=== PATIENT | female | born 1990 | race Two or more races ===

== ENCOUNTER → 2018-11-12 | Emergency (ER) | payer MEDICAID, OTHER | END | disposition left against medical advice (07) | LOC: ER 21:27 | DX: N93.9 Abnormal uterine and vaginal bleeding, unspecified (principal); Z53.21 Procedure and treatment not carried out due to patient leaving prior to being seen by health care provider ==

== ENCOUNTER 2022-01-04 21:20 | Emergency (ER) | payer MEDICAID ==
[~2022-01-04] VITALS: Ht 175.3 cm; Wt 88.5 kg
[2022-01-04 21:21] VITALS: BP 119/62
[2022-01-04] MEDS ORDERED: IBU600T PO (23:59)
[2022-01-05] MEDS ORDERED: IBUPROFEN 600 MG TAB PO ONE
[2022-01-05] MEDS ORDERED: IBU600T PO ×5 (00:01→00:12)
== END 2022-01-05 00:14 | disposition home or self-care (01) ==
LOC: ER 21:20
DX: S80.11XA Contusion of right lower leg, initial encounter (principal); Z79.1 Long term (current) use of non-steroidal anti-inflammatories (NSAID); W18.39XA Other fall on same level, initial encounter; Y93.89 Activity, other specified; Y92.89 Other specified places as the place of occurrence of the external cause; Y99.0 Civilian activity done for income or pay
CPT/HCPCS: 73562

== ENCOUNTER 2022-11-18 00:25 | Emergency (ER) | payer MEDICAID ==
[~2022-11-18] VITALS: Ht 175.3 cm; Wt 94.2 kg
[~2022-11-18 00:25] MED LIST: IBU600T PO
[2022-11-18] MEDS ORDERED: CYCL-837 PO (02:50)
[2022-11-18] MEDS ORDERED: DICL-163 PO (02:50)
[2022-11-18] MEDS ORDERED: HYDROcodone-ACET 5/325MG TAB PO ONE (03:00)
[2022-11-18] MEDS ORDERED: KETOROLAC TROMETH 30 MG/ML 1ML VIAL IM ONE (03:00)
[2022-11-18 04:00] VITALS: BP 105/67
== END 2022-11-18 04:04 | disposition home or self-care (01) ==
LOC: ER 00:25
DX: M79.601 Pain in right arm (principal); M25.511 Pain in right shoulder; M54.2 Cervicalgia; M54.6 Pain in thoracic spine; V43.62XA Car passenger injured in collision with other type car in traffic accident, initial encounter; Y93.89 Activity, other specified; Y92.89 Other specified places as the place of occurrence of the external cause; Y99.8 Other external cause status
CPT/HCPCS: 70450; 71250; 72125; 73030; 73080; 73130; 74176; 93005

== ENCOUNTER 2023-01-07 21:53 | Emergency (ER) | payer MEDICAID ==
[~2023-01-07] VITALS: Ht 175.3 cm; Wt 91.9 kg
[~2023-01-07 21:53] MED LIST changes: +CYCL-837 PO; +DICL-163 PO
[2023-01-07 23:30] VITALS: BP 118/67
[2023-01-08 00:52] LABS: Urine Bacteria NONE SEEN /hpf (None Seen); Urine Blood Negative /uL (Negative); Urine Mucus FEW (None Seen); Urine Specific Gravity 1.034 (1.001-1.035); Urine WBC 23 /hpf (0 - 5)
[2023-01-08] MEDS ORDERED: PRED20TA2 PO (01:03)
[2023-01-08] MEDS ORDERED: NITR-87 PO (01:03)
== END 2023-01-08 01:13 | disposition home or self-care (01) ==
LOC: ER 21:53
DX: J06.9 Acute upper respiratory infection, unspecified (principal); N39.0 Urinary tract infection, site not specified; J45.909 Unspecified asthma, uncomplicated
CPT/HCPCS: 81001

== ENCOUNTER 2024-07-02 19:58 | Emergency (ER) | payer MEDICAID ==
[~2024-07-02] VITALS: Ht 162.6 cm; Wt 83.2 kg
[~2024-07-02 19:58] MED LIST changes: -DICL-163 PO; +DICL50TA5 PO; +NITR-87 PO; +PRED20TA2 PO
[2024-07-02 20:41] VITALS: BP 111/69; PULSE 80; RESP 20; TEMP 98.2; O2SAT 97
[2024-07-02] MEDS ORDERED: CETITAB29 PO (22:23)
[2024-07-02] MEDS ORDERED: PRED20TA2 PO (22:23)
[2024-07-02] MEDS ORDERED: FLUT250M2 INH (22:30)
[2024-07-02] MEDS: diphenhdrAMINE HCL 50 MG/1 ML VL IM ONE (22:44)
[2024-07-02] MEDS: DexAMETHasone SOD PHOS 10MG/1ML VIAL INJ IM ONE (22:45)
== END 2024-07-02 23:02 | disposition home or self-care (01) ==
LOC: ER 19:58
DX: S40.862A Insect bite (nonvenomous) of left upper arm, initial encounter (principal); S40.861A Insect bite (nonvenomous) of right upper arm, initial encounter; J45.909 Unspecified asthma, uncomplicated; W57.XXXA Bitten or stung by nonvenomous insect and other nonvenomous arthropods, initial encounter; Y93.89 Activity, other specified; Y92.89 Other specified places as the place of occurrence of the external cause; Y99.8 Other external cause status
CPT/HCPCS: 96372; 99283; J1100; J1200

== ENCOUNTER 2024-09-15 15:01 | Emergency (ER) | payer MEDICAID ==
[~2024-09-15] VITALS: Ht 175.3 cm; Wt 88.2 kg
[~2024-09-15 15:01] MED LIST changes: +CETITAB29 PO; +FLUT250M2 INH
[2024-09-15 15:47] VITALS: BP 94/37; PULSE 93; TEMP 99.2
[2024-09-15] MEDS: IPRATROPIUM BROM 0.5 MG/2.5ML INH SOL NEB ONE (16:05)
[2024-09-15] MEDS: ALBUTEROL SULF 2.5 MG/0.5ML(0.5%) NEB SOLN NEB ONE (16:05)
[2024-09-15 16:09] VITALS: RESP 16; O2SAT 96
[2024-09-15] MEDS ORDERED: AZIT500T66 PO (16:44)
[2024-09-15] MEDS ORDERED: PRED20TA2 PO (16:44)
[2024-09-15] MEDS ORDERED: FLUT1AER6 IN (16:44)
== END 2024-09-15 16:55 | disposition home or self-care (01) ==
LOC: ER 15:01
DX: J03.90 Acute tonsillitis, unspecified (principal); J45.909 Unspecified asthma, uncomplicated
CPT/HCPCS: 71045; 94640

== ENCOUNTER 2025-02-13 09:46 | Emergency (ER) | payer MEDICAID ==
[~2025-02-13] VITALS: Ht 160 cm; Wt 93.6 kg
[~2025-02-13 09:46] MED LIST changes: +AZIT500T66 PO; +FLUT1AER6 IN
[2025-02-13 10:28] VITALS: BP 137/93; PULSE 89; RESP 20; TEMP 98.4; O2SAT 97
[2025-02-13] MEDS: LORazepam 0.5 MG TAB PO ONE (10:38)
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
[2025-02-13] MEDS ORDERED: HYDR-3682 PO (12:29)
[2025-02-13] MEDS ORDERED: FLUT1AER6 IN (12:29)
== END 2025-02-13 12:23 | disposition home or self-care (01) ==
LOC: ER 09:46
DX: F43.22 Adjustment disorder with anxiety (principal); J45.909 Unspecified asthma, uncomplicated

== ENCOUNTER 2025-10-17 10:27 | Emergency (ER) | payer MEDICAID ==
[~2025-10-17] VITALS: Ht 165.1 cm; Wt 91.7 kg
[~2025-10-17 10:27] MED LIST changes: +HYDR-3682 PO
--- NOTE | 2025-10-17 11:17 | ED.PDOC ---
SOB-HPI HPI Comments A 35 YEAR OLD FEMALE PRESENTS TO THE ED WITH COMPLAINT OF ASTHMA EXACERBATION, REQUEST FOR MEDICATION REFILL, AND REQUEST FOR TEST. PATIENT STATES SHE HAS A HISTORY OF ASTHMA AND HAS BEEN EXPERIENCING DIFFICULTY BREATHING, CHEST TIGHTNESS, AND A SORE THROAT FOR THE PAST 2 DAYS. PATIENT REPORTS SHE WOULD ALSO LIKE A MEDICATION REFILL FOR HER FOR PROZAC TO MANAGE HER ANXIETY. PATIENT IS ALSO REQUESTING A URINE TEST HERE IN THE ED SHE STATES THERE IS A POSSIBILITY THAT SHE MAY BE . PATIENT DENIES FEVER, CHILLS, SHORTNESS OF BREATH, CHEST PAIN, ABDOMINAL PAIN, NAUSEA, VOMITING, HEADACHE, OR OTHER COMPLAINTS. NO OTHER SYMPTOMS OR MODIFYING FACTORS AT THIS TIME. PATIENT IS ALERT, ORIENTED X 4, AND HAS STEADY GAIT. Chief Complaint: Shortness of Breath Time Seen by MD: 10:36 Primary Care Provider: DENZEL Merrill notes: Nurses Notes, Medications, Allergies Information Source: Patient Mode of Arrival: Ambulatory Severity: Moderate Timing: Days Duration: Since onset, Other Context: Spontaneous Onset PE Risk Factors: None History of: Asthma Prehospital treatment: None Modifying Factors: Nothing Associated Signs and Symptoms: Cough, Sore Throat If cough with SOB: Non-Productive Past Medical History PAST MEDICAL HISTORY: Anxiety, Asthma Surgical History: Denies all surgeries EDUCATIONAL AID History: No Pertinent EDUCATIONAL AID History Family History Family History: Reviewed,noncontributory to illness Social History Smoker: Non-Smoker Alcohol: Denies ETOH Use Drugs: Denies Drug Use Lives In: Home Constitutional: denies: chills, diaphoresis, fatigue, fever, malaise, sweats, weakness, others EENTM: denies: blurred vision, double vision, ear bleeding, ear discharge, ear drainage, ear pain, ear ringing, eye pain, eye redness, hearing loss, mouth pain, mouth swelling, nasal discharge, nose bleeding, nose congestion, nose pain, photophobia, tearing, throat pain, throat swelling, voice changes, others Respiratory: reports: wheezing, others (CHEST TIGHTNESS); denies: cough, hemoptysis, orthopnea, SOB at rest, shortness of breath, SOB with excertion, stridor Cardiovascular: denies: chest pain, dizzy spells, diaphoresis, Dyspnea on exertion, edema, irregular heart beat, left arm pain, lightheadedness, palpitations, PND, syncope, others Gastrointestinal: denies: abdomen distended, abdominal pain, blood streaked bowels, constipated, diarrhea, dysphagia, difficulty swallowing, hematemesis, melena, nausea, poor appetite, poor fluid intake, rectal bleeding, rectal pain, vomiting, others Genitourinary: denies: abnormal vagina bleeding, burning, dyspareunia, dysuria, flank pain, frequency, hematuria, incontinence, pain, , vagina discharge, urgency, others Neurological: denies: dizziness, fainting, headache, left sided numbness, left sided weakness, numbness, paresthesia, pre-existing deficit, right sided numbness, right sided weakness, seizure, speech problems, tingling, tremors, weakness, others Musculoskeletal: denies: back pain, gout, joint pain, joint swelling, muscle pain, muscle stiffness, neck pain, others Integumetry: denies: bruises, change in color, change in hair/nails, dryness, laceration, lesions, lumps, rash, wounds, others Allergic/Immunocompromised: denies: Difficulty Healing, Frequent Infections, Hives, Itching, others Hematologic/Lymphatic: denies: anemia, blood clots, easy bleeding, easy bruising, swollen glands, others Endocrine: denies: excessive hunger, excessive sweating, excessive thirst, excessive urination, flushing, intolerance to cold, intolerance to heat, unexplained weight gain, unexplained weight loss, others Psychiatric: reports: anxiety; denies: bipolar disorder, depression, hopeless, panic disorder, schizophrenia, sleepless, suicidal, others All Other Systems: Reviewed and Negative Physical Exam General Appearance: No Apparent Distress, Normal HEENT: Normal ENT Inspection, PERRL/EOMI, Pharynx Normal, TMs Normal Neck: Full Range of Motion, Non-Tender, Normal, Normal Inspection Respiratory: Chest Non-Tender, Expiration, No Accessory Muscle Use, No Respiratory Distress, Wheezing Cardiovascular: No Edema, No JVD, No Murmur, No Gallop, Normal Peripheral Pulses, Regular Rate/Rhythm Breast Exam: Deferred Gastrointestinal: No Organomegaly, Non Tender, No Pulsatile Mass, Normal Bowel Sounds, Soft Genitalia: Deferred Pelvic: Deferred Rectal: Deferred Extremities: No calf tenderness, Normal capillary refill, Normal inspection, Normal range of motion, Non-tender, No pedal edema Musculoskeletal : Apperance: Normal Neurologic: Alert, physician locums urgent care II-XII nml as Tested, No Motor Deficits, Normal Affect, Normal Mood, No Sensory Deficits Cerebellar Function: Normal Reflexes: Normal Skin: Dry, Normal Color, Warm Peripheral Pulses: 2+ carotid (R), 2+ carotid (L) Lymphatic: No Adenopathy Was a procedure done? Was a procedure done?: No Differential Dx Differential Diagnosis: Anxiety, Asthma, Sinusitis, Allergic Rhinitis, Otitis Media, URI X-Ray, Labs, Meds, VS Vital Signs Date Time Temp Pulse Resp B/P (MAP) Pulse Ox O2 Delivery O2 Flow Rate FiO2 10/17/25 11:49 98.0 83 15 99/74 (82) 100 98.0 10/17/25 11:49 83 15 100 Room Air 10/17/25 11:21 17 97 Room Air* 0 21 10/17/25 10:29 97.9 82 16 155/112 98 97.9 Lab Test 10/17/25 11:02 Range/Units Urine Test Negative Negative Current Medications Medications (Trade) Dose Ordered Sig/Ibrahima Route Start Time Stop Time Status Last Admin Albuterol (Ventolin Medneb) 2.5 mg ONCE ONCE NEB 10/17/25 11:15 10/17/25 11:16 DC 10/17/25 11:21 Ipratropium [place] (Atrovent Medneb) 0.5 mg ONCE ONCE NEB 10/17/25 11:15 10/17/25 11:16 DC 10/17/25 11:21 X-Ray, Labs, Meds, VS Comment EXTERNAL MEDICAL RECORDS REVIEWED: [NONE] INDEPENDENT HISTORIANS: [NONE] SOCIAL DETERMINANTS OF HEALTH: [NONE] LABS ORDERED: URINE REVIEWED AND INTERPRETED RESULTS: NEGATIVE IMAGING ORDERED: NONE TREATMENTS ORDERED: DUONEB 3 MG INHL PROCEDURES PERFORMED: NONE CRITICAL CARE TIME: NONE I HAVE DISCUSSED THE PATIENT WITH THE ATTENDING PHYSICIAN DR. MORGAN AND HE AGREES WITH THE PATIENT'S PLAN OF CARE AND DISPOSITION. BASED ON HISTORY OF PRESENT ILLNESS, AND PHYSICAL EXAM, PATIENT WILL BE DISCHARGED HOME. DISCUSSED PLAN FOR DISCHARGE HOME WITH RX [INHALER AND PROZAC 20 MG]. MEDICATION WARNINGS GIVEN. SHARED DECISION MAKING: DISCUSSED WITH PATIENT THAT THEIR WORKUP WAS NORMAL. PATIENT INSTRUCTED TO FOLLOW UP WITH PRIMARY CARE PROVIDER IN 1-2 DAYS FOR RE- EVALUATION OF SYMPTOMS. PATIENT VERBALIZES UNDERSTANDING TO RETURN TO ED FOR NEW OR WORSENING SYMPTOMS OR IF FOLLOW UP WITH PCP CANNOT BE OBTAINED. PATIENT FEELS COMFORTABLE GOING HOME AT THIS TIME. ALL QUESTIONS ADDRESSED AT TIME OF DISCHARGE. Time of 1ST Reevaluation: 12:21 Reevaluation 1ST: Improved Patient Education/Counseling: Diagnosis, Treatment, Need For Follow Up Family Education/Counseling: Diagnosis, Treatment, Need For Follow Up Medical Screening: No EMC Exist At This Time SEPSIS Sepsis Screen Date sepsis recognized/suspect: Oct 17, 2025 Time Sepsis recognized/suspect: 103 Recent Procedure: No On Antibiotic Therapy: No Respiratory Rate >20: No Heart Rate >90: No Temp<36 C (96.8 F) or >38.3 C: No SBP <90 or MAP <65 mmHG: No New Acute Mental Status Change: No Is the patient on CPAP, BIPAP,: No Vital Signs Date Time Temp Pulse Resp B/P (MAP) Pulse Ox O2 Delivery O2 Flow Rate FiO2 10/17/25 11:49 98.0 83 15 99/74 (82) 100 98.0 10/17/25 11:49 83 15 100 Room Air 10/17/25 11:21 17 97 Room Air* 0 21 10/17/25 10:29 97.9 82 16 155/112 98 97.9 Medications Medications Dose Ordered Sig/Ibrahima Route Start Time Stop Time Status Last Admin Dose Admin Albuterol 2.5 mg ONCE ONCE NEB 10/17/25 11:15 10/17/25 11:16 DC 10/17/25 11:21 Ipratropium [place] 0.5 mg ONCE ONCE NEB 10/17/25 11:15 10/17/25 11:16 DC 10/17/25 11:21 Departure 1 Departure Time of Disposition: 12:24 Impression: Primary Impression: Acute asthma exacerbation Qualified Codes: J45.21 - Mild intermittent asthma with (acute) exacerbation Additional Impressions: Encounter for medication refill History of anxiety Disposition: HOME / SELF CARE / HOMELESS Condition: Stable Additional Instructions: FOLLOW-UP WITH PCP IN 1 TO 2 DAYS. TAKE MEDICATIONS PRESCRIBED. RETURN TO ED FOR ANY NEW OR WORSENING SYMPTOMS. e-Prescriptions Fluoxetine HCl (Pmdd) (Fluoxetine HCl) 20 Mg Tab 20 MG PO DAILY, #20 TAB Prov: SSUAN DONOHUE 10/17/25 Albuterol Sulfate (Albuterol Sulfate Hfa) 108 Mcg/Act Aer 108 MCG IN TID, #120 AER Prov: SUSAN DONOHUE 10/17/25 Discharged With: Self Critical Care Note Critical Care Time?: No Stability Stability form required: No Heart Score Heart Score: Heart Score Response (Comments) Value History N/A 0 EKG N/A 0 Age N/A 0 Risk Factors N/A 0 Troponin N/A 0 Total 0 I personally scribed for SUSAN DONOHUE ([email or web address]) on 10/17/25 at 11:17. Electronically submitted by Johnny Beckman ([employer]). I personally scribed for SUSAN DONOHUE ([email or web address]) on 10/17/25 at 12:19. Electronically submitted by Johnny Beckman ([employer]). SUSAN DONOHUE Oct 17, 2025 11:17
[2025-10-17] MEDS: IPRATROPIUM BROM 0.5 MG/2.5ML INH SOL NEB ONE (11:21)
[2025-10-17] MEDS: ALBUTEROL SULF 2.5 MG/0.5ML(0.5%) NEB SOLN NEB ONE (11:21)
[2025-10-17 11:49] VITALS: BP 99/74; PULSE 83; RESP 15; TEMP 98; O2SAT 100
[2025-10-17] MEDS ORDERED: FLUO1TAB14 PO (12:20)
[2025-10-17] MEDS ORDERED: ALBU108A5 IN (12:20)
== END 2025-10-17 12:29 | disposition home or self-care (01) ==
LOC: ER 10:27
DX: J45.901 Unspecified asthma with (acute) exacerbation (principal); F41.9 Anxiety disorder, unspecified; Z76.0 Encounter for issue of repeat prescription
CPT/HCPCS: 81025; 94640